=== PATIENT | male | born 1975 | race Caucasian/White ===

== ENCOUNTER 2016-08-16 14:30 | Inpatient (IN) | payer BC ==
[~2016-08-16] VITALS: Ht 188 cm; Wt 54.0 kg
[~2016-08-16 14:30] MED LIST: CIPR-172 PO; CLON0.5T4 PO; CLON1TAB4 PO; CYAN100067 PO; FLOR.1 PO; HYDR2TAB34 PO; METO25TA3 PO; NYST15CR30 TP; TEMA15CA PO; TIZA4TAB11 PO; [UNRECOGNIZED DRUG - CODE] SL
[2016-08-16 14:38] VITALS: BP_SYST 108
--- NOTE | 2016-08-16 14:59 | NUR ---
Placed in room 03 . Placed on freight checker, blood pressure machine and pulse oximeter. To gown for exam. Side rails up. Report given to Dharmesh
--- NOTE | 2016-08-16 15:02 | NUR ---
Pt states having continuous generalized abd pain for last 2 weeks. +nausea, -vomiting, -diarrhea. Pt states having "loss of appetite" for last week. Pt states pain on palpation in all 4 quadrants, pain scale 6/10. Pt states that his stool is "dark colored and formed". Pt arrived to ER with In and Out catheter from home, approximately 200 mL emptied from bag. Pt denies any other complaints.
--- NOTE | 2016-08-16 15:03 | NUR ---
ER Dr. Gutierrez at bedside examining patient.
[2016-08-16 15:23] LABS: BASOPHILS % (AUTO) 0.7 % (0.0-2.0); HEMATOCRIT 43.9 % (36-54); HEMOGLOBIN 14.3 g/dL (14.0-18.0); LYMPHOCYTES # (AUTO) 1.9 K/uL (1.0-5.5); LYMPHOCYTES % (AUTO) 43.9 % (20.5-51.5); MEAN CORPUSCULAR HEMOGLOBIN 30 pg (27-31); MEAN CORPUSCULAR HGB CONC 33 % (32-36); MEAN CORPUSCULAR VOLUME 91 fL (79.0-98.0); MONOCYTES # (AUTO) 0.5 K/uL (0.0-1.0); MONOCYTES % (AUTO) 11.7 % (1.7-9.3); NEUTROPHILS # (AUTO) 1.8 K/uL (1.8-7.7); NEUTROPHILS % (AUTO) 42.7 % (40.0-70.0); PLATELET COUNT (AUTO) 221 K/uL (130-430); RED BLOOD CELL COUNT(AUTO) 4.82 MIL/uL (4.2-6.2); RED CELL DISTRIBUTION WIDTH 11.8 % (9.0-15.0); WHITE BLOOD COUNT (AUTO) 4.2 K/uL (4.8-10.8)
[2016-08-16 15:36] LABS: CALCIUM 9.1 mg/dL (8.4-11.0); CREATININE 0.39 mg/dL (0.55-1.30); POTASSIUM 3.8 mmol/L (3.5-5.1)
[2016-08-16 15:39] LABS: BILIRUBIN,URINE NEGATIVE (NEGATIVE); CLARITY/URINE CLEAR (CLEAR); COLOR,URINE YELLOW (YELLOW); GLUCOSE,URINE NEGATIVE (NEGATIVE); KETONES,URINE NEGATIVE (NEGATIVE); LEUKOCYTE ESTERASE ,URINE NEGATIVE (NEGATIVE); NITRITE, URINE NEGATIVE (NEGATIVE); PH,URINE 5.5 (5.0-8.0); PROTEIN URINE NEGATIVE (NEGATIVE); UROBILINOGEN,URINE 0.2 (0.2-1.0)
[2016-08-16 15:39] LABS: INR 1.1 (0.80-1.20); PROTHROMBIN TIME 11.6 SECS (9.5-12.5)
[2016-08-16 15:40] LABS: BLOOD, URINE TRACE (NEGATIVE)
[2016-08-16 15:40] LABS: ALBUMIN 4.1 g/dL (3.4-4.8); TOTAL BILIRUBIN 0.6 mg/dL (0.0-1.0); TOTAL PROTEIN, SERUM 7.5 g/dL (6.4-8.3)
[2016-08-16 15:57] LABS: BACTERIA,URINE FEW /HPF (None Seen); RBC,URINE 0-3 /HPF (0-3)
[2016-08-16 15:58] LABS: MUCUS,URINE None Seen /LPF (None Seen)
[2016-08-16] MEDS ORDERED: MAGNESIUM CITRATE 300 ML ORAL SOLUTION PO ONE (16:15)
[2016-08-16] MEDS ORDERED: CIPROFLOXACIN HCL 500 MG TABLET PO ONE (16:15)
--- NOTE | 2016-08-16 16:32 | NUR ---
Pt stable, no signs of distress noted.
[2016-08-16] MEDS ORDERED: KCL 20 mEq in D5/0.45NS 1000mL 1,000 ML IV SCH (17:00)
--- NOTE | 2016-08-16 17:20 | NUR ---
Patient will be admitted to care of Dr. Spears. Admitted to med surg unit. Will go to room 104A. Belongings list completed. Summary report printed. Report given to MEENAKSHI Ballard.
--- NOTE | 2016-08-16 17:23 | NUR ---
ADMISSION NOTE Received patient from ER via winsomerdeborah, received report from ED RN. Patient admitted with diagnosis of URINARY TRACT INFECTION. Patient oriented to hospital routine, call light, toileting and safety-patient verbalized understanding.
[2016-08-16 17:45] VITALS: BP_SYST 91
--- NOTE | 2016-08-16 18:02 | NUR ---
Initial Note Received pt in bed, no s/s of distress or sob noted, pt has no c/o pain at this time, pt in stable condition, pt aaox4, verbal, pt quadriplegic. Pt made comfortable, currently eating dinner. Bed at lowest position, call light within reach, will endorse care of pt to incoming nurse. Fall precautions in place.
--- NOTE | 2016-08-16 18:10 | NUR ---
MD CALL Spoke with Dr Butt in regards to orders for straight catheter, air mattress, IV site, dietary and psychosocial rehabilitation counselor consult per md to only telephone order for IV catheter and that he will come and see pt right now and put orders in computer. Charge nurse aware.
[2016-08-16] MEDS ORDERED: CYANOCOBALAMIN 1000 mCg TABLET PO SCH (19:15)
[2016-08-16] MEDS ORDERED: clonazePAM 0.5 MG TABLET PO PRN (19:15)
--- NOTE | 2016-08-16 19:27 | NUR ---
CONSULTATION PAGED REASON FOR CONSULTATION:ACUTE ABDOMINAL PAIN WAS CONSULT CALLED?Y PERSON WHO WAS NOTIFIED:DAMIR CONSULTING PHYSICIAN:GARETT JAIMES FERRY BOAT CAPTAIN SPECIALTY:SURGEON FERRY BOAT CAPTAIN PHONE NUMBER:[phone]
[2016-08-16] MEDS ORDERED: MINERAL OIL 133 ML ENEMA RC ONE (19:30)
[2016-08-16 20:00] VITALS: BP_SYST 126
--- NOTE | 2016-08-16 20:00 | NUR ---
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
[2016-08-16] MEDS: CEFEPIME 1 GM in D5W 50 ML IV SCH (21:00)
[2016-08-16] MEDS ORDERED: NYSTATIN/TRIAMCIN 15 GM TOPICAL CREAM TP SCH (21:00)
[2016-08-16] MEDS: HYDROmorphone 2 MG TAB PO PRN (21:02)
[2016-08-16 21:15] VITALS: BP_SYST 128
[2016-08-16] MEDS ORDERED: CEFEPIME 1 GM/VIAL (MAXIPIME) ONE (22:36)
[2016-08-16] MEDS: ENOXAPARIN SODIUM 30 MG/0.3 ML SYRINGE SUBCUT SCH (22:47)
[2016-08-16] MEDS: FLUDROCORTISONE ACETATE 0.1 MG TABLET( FLORINEF) PO SCH (22:48)
[2016-08-16] MEDS: tiZANidine HCL 4 MG TABLET PO SCH (22:48)
[2016-08-16] MEDS: TEMAZEPAM 15 MG CAPSULE PO SCH (22:48)
[2016-08-16] MEDS: clonazePAM 0.5 MG TABLET PO SCH (22:49)
--- NOTE | 2016-08-16 23:00 | NUR ---
Pt resting at this time;no signs/symptoms of pain observed
[2016-08-16] MEDS: HYOSCYAMINE SULFATE 0.125 MG TABLET SL SCH (23:27)
[2016-08-17 00:03] VITALS: BP_SYST 119
--- NOTE | 2016-08-17 01:10 | NUR ---
Report given & care surrendered to MEENAKSHI Ryan
--- NOTE | 2016-08-17 01:15 | NUR ---
Endorsement of Patient Received patient resting in bed, awake. Patient denies any acute distress at this time. Breathing is even and unlabored. IV site patent/clean/dry. Per patient, patient is paralyzed from armpits down. Medicated patient for pain. Educated patient on use of call light for assistance, patient verbalized understanding. Call light in hand, will continue to monitor.
[2016-08-17] MEDS: HYDROmorphone 2 MG TAB PO PRN ×4 (01:26→18:55)
--- NOTE | 2016-08-17 02:00 | NUR ---
Rounds Patient resting in bed, awake. Patient denies any acute distress or pain at this time. Breathing is even and unlabored. Repositioned for comfort. Needs address. IV site patent/clean/dry. Will continue to monitor.
--- NOTE | 2016-08-17 04:00 | NUR ---
Rounds Patient resting in bed with eyes closed. No acute distress noted, breathing is even any unlabored. IV site patent/clean/dry. Will continue to monitor.
[2016-08-17 04:23] VITALS: BP_SYST 92
--- NOTE | 2016-08-17 06:49 | NUR ---
Closing Notes Patient resting in bed with eyes closed, easily aroused. Patient denies any acute distress or pain at this time. Breathing is even and unlabored on room air. IV site patent/clean/dry, no S/S infection/infiltration noted. Incontinence care provided. Needs addressed throughout shift. Call light in hand, fall precautions in place. Will continue to monitor for changes and safety, and endorse all patient care/needs to oncoming nurse.
[2016-08-17 07:30] VITALS: BP_SYST 102
--- NOTE | 2016-08-17 08:00 | NUR ---
Opening notes; Received patient in bed, c/o pain generalized, mostly at back 10, will medicate. pt aaox3, no sob, no distress. on air mattress, bed in low position, vitals wnl. afebrile. call light in reach. bed alarm on, will cont to monitor.
--- NOTE | 2016-08-17 09:22 | NUR ---
Nutrition Update Moreno Scale 13 noted. Pt admitted for UTI. Diet: regular, no gluten BMI: 15.4 kg/m2 RD to follow per nutrition care standards.
[2016-08-17] MEDS: METOPROLOL SUCCINATE 25 MG TAB.SR.24H (TOPROL XL) PO SCH (09:31)
[2016-08-17] MEDS: FLUDROCORTISONE ACETATE 0.1 MG TABLET( FLORINEF) PO SCH ×2 (09:32→21:15)
[2016-08-17] MEDS: tiZANidine HCL 4 MG TABLET PO SCH ×2 (09:32→21:14)
[2016-08-17] MEDS: clonazePAM 0.5 MG TABLET PO SCH ×3 (09:32→21:15)
--- NOTE | 2016-08-17 10:00 | NUR ---
Rounding notes, patient in bed , denies pain, no sob, no distress, family at bedside. all am meds offered and taken. safety precaution in place. will continue to monitor.
[2016-08-17 11:36] VITALS: BP_SYST 96
[2016-08-17] MEDS ORDERED: NYSTATIN/TRIAMCIN 15 GM TOPICAL CREAM TP ONE (11:45)
--- NOTE | 2016-08-17 12:00 | NUR ---
Rounding notes ; fs bs = 133 Pt in bed, awake, family at bedside, no s/sx pain, no sob, no distress. call light in reach, bed in low position. safety precautiion in place. estate attorney , Choco , changed wound vac dressing earlier. Addendum: 08/17/16 at 1226 by Higinio Jimenez RN WRONG ENTRY NOTES PLEASE DISREGARD THIS PATIENT NOTES, THIS BELONGS TO ANOTHER PATIENT
--- NOTE | 2016-08-17 12:19 | NUR ---
Rounding notes, patient in bed, family at bedside. eating lunch, no sob, no distress. provided drinking water and fork. call light in reach, bed in low position. safety precaution in place. will cont to monitor.
[2016-08-17] MEDS: HYOSCYAMINE SULFATE 0.125 MG TABLET SL SCH ×2 (13:17→21:15)
[2016-08-17] MEDS: NYSTATIN/TRIAMCIN 15 GM TOPICAL CREAM TP SCH (13:18)
[2016-08-17] MEDS: CEFEPIME 1 GM in D5W 50 ML IV SCH ×2 (13:22→21:14)
[2016-08-17] MEDS: KCL 20 mEq in D5/0.45NS 1000mL 1,000 ML IV SCH (13:32)
[2016-08-17 15:33] VITALS: BP_SYST 123
--- NOTE | 2016-08-17 15:33 | NUR ---
rounding notes, pt in bed, sleeping, family at bedside. pt awaken and given pm med. no c/o pain. no sob.
--- NOTE | 2016-08-17 16:27 | NUR ---
rounding notes, follow up consult with dr carvalho. pt in bed, no sob, no distress, pt resting comfortably in bed. call light in reach, bed in low position. will cont to monitor. per rn discharge zeny, she is calling dr haque to make aware that dr kaia carvalho will not be able to see pt until tomorrow morning.
--- NOTE | 2016-08-17 18:00 | NUR ---
rounding notes, patient in bed, denies pain , no sob, no distress. call light in reach. bed in low position. will cont to monitor.
--- NOTE | 2016-08-17 18:00 | NUR ---
DR carvalho will seeing patient in am. Dr sainz is aware.
[2016-08-17 19:10] VITALS: BP_SYST 101
--- NOTE | 2016-08-17 19:10 | NUR ---
Initial Round Received patient in bed awake with friend at bedside. Patient is awake, alert, oriented x3. V/S are WNL. No s/s of any pain or distress noted. IV noted to L hand g 22, no infiltrate and with good blood return. Pt has a in and out suprapubic cath and can perform by pt independently, supplies at bedside. BUE are strong and BLE are paralzyed. Discussed plan of care with pt and verbalized understanding. Bed in low position with call light within reach, will cont to monitor.
--- NOTE | 2016-08-17 19:30 | NUR ---
CLOSING NOTES, PT ENDORSE TO NIGHT RN JOHN. PT REMAIN AAO, PAIN MEDS GIVEN REQUESTED. KEPT SAFE. NO UNTOWARD INCIDENT THIS SHIFT.
--- NOTE | 2016-08-17 21:10 | NUR ---
Rounds Patient is awake with friend at bedside. No s/s of any distress noted. Call light within reach, will cont to monitor.
[2016-08-17] MEDS: TEMAZEPAM 15 MG CAPSULE PO SCH (21:15)
[2016-08-17] MEDS: ENOXAPARIN SODIUM 30 MG/0.3 ML SYRINGE SUBCUT SCH (21:16)
--- NOTE | 2016-08-17 23:10 | NUR ---
Assisted with urostomy bag Assisted pt with the use of urostomy . Left bed in low position with call light within reach, will cont to monitor.
[2016-08-18] VITALS (7 sets, daily range): BP systolic 96–129
[2016-08-18] MEDS: KCL 20 mEq in D5/0.45NS 1000mL 1,000 ML IV SCH ×2 (03:31→16:05)
--- NOTE | 2016-08-18 03:46 | NUR ---
Reinsert new IV Reinsert new IV site to MAR Torres. Tolerated well, no c/o pain. Will cont to monitor.
[2016-08-18] MEDS: HYDROmorphone 2 MG TAB PO PRN ×4 (06:18→21:17)
--- NOTE | 2016-08-18 06:40 | NUR ---
Final Rounds Patient is resting at this time. No s/s of pain or any distress noted. V/S are wnl. All needs met and anticipated by noc nurses. Bed in low position with side rails up x2. Call light within reach, will endorse.
--- NOTE | 2016-08-18 08:00 | NUR ---
RN OPENING patient lying on bed alert oriented x4 , patient vital signs are stable, patient was assessed, patient will be given their med at 0900 will follow up
[2016-08-18] MEDS: CEFEPIME 1 GM in D5W 50 ML IV SCH ×2 (09:03→21:10)
[2016-08-18] MEDS: METOPROLOL SUCCINATE 25 MG TAB.SR.24H (TOPROL XL) PO SCH (09:03)
[2016-08-18] MEDS: tiZANidine HCL 4 MG TABLET PO SCH ×2 (09:04→21:10)
[2016-08-18] MEDS: clonazePAM 0.5 MG TABLET PO SCH ×3 (09:04→21:10)
[2016-08-18] MEDS: FLUDROCORTISONE ACETATE 0.1 MG TABLET( FLORINEF) PO SCH ×2 (09:05→21:10)
[2016-08-18] MEDS: NYSTATIN/TRIAMCIN 15 GM TOPICAL CREAM TP SCH ×2 (09:07→21:11)
--- NOTE | 2016-08-18 10:00 | NUR ---
RN Rounds patient lying on bed, talked to the surgeon about his next operation, was educated about the infection prevention of the urinary tract. pharmacy was called regarding Levsin tab is missing.. will follow up
--- NOTE | 2016-08-18 12:00 | NUR ---
RN Rounds patient lying on bed skin care therapist by the bed side. no complaints. pharmacy was called again regarding the medicine, they say they will send it will follow up
[2016-08-18] MEDS: HYOSCYAMINE SULFATE 0.125 MG TABLET SL SCH ×2 (12:53→21:00)
--- NOTE | 2016-08-18 19:30 | NUR ---
CHANGE OF SHIFT: pt. awake, alert, been trying to catheterize himself via hypogastric region on rt. side of abdomen with small stoma opening, offered help but he wants to do it himself his own way with some difficulty because pt. is quadriplegic but upper extremities able to move. IV infusing via left forearm IV site. pt. on special bed. call light within reach.
[2016-08-18] MEDS: TEMAZEPAM 15 MG CAPSULE PO SCH (21:10)
[2016-08-18] MEDS: ENOXAPARIN SODIUM 30 MG/0.3 ML SYRINGE SUBCUT SCH (21:12)
--- NOTE | 2016-08-18 21:30 | NUR ---
NOTES; due medications given and tolerated well, given pain med as well for generalized pain. both lower extremities elevated with pillows. needs attended.
--- NOTE | 2016-08-18 22:00 | NUR ---
NOTES: complete hs care done. repositioned pt. the way he wants. esequiel care done, noted redness on scrotal area and some redness on coccyx area but no open sore and skin intact.noted loss of body fats, back care done.
--- NOTE | 2016-08-19 | NUR ---
NOTES: pt. remains awake, noted slight relief from his pain. needs attended.
--- NOTE | 2016-08-19 02:00 | NUR ---
NOTES: still trying to get comfortable, already sweating. able to drain @ 700 cc of urine earlier. will medicate for c/o generalized pain.
[2016-08-19] MEDS: HYDROmorphone 2 MG TAB PO PRN ×4 (02:16→20:38)
--- NOTE | 2016-08-19 04:00 | NUR ---
ROUNDS: pt. able to sleep this time. kept warm with his comforter.call light within reach and also his cell phone on his bedside.
[2016-08-19 04:45] VITALS: BP_SYST 137
--- NOTE | 2016-08-19 06:00 | NUR ---
NOTES: pt. checked, resting and still sleeping. needs attended. IVF paten, heating pad on his back continuous. needs further care and observation. call light within reach. catheters at bedside table for easy access fo pt. to self cath himself.
--- NOTE | 2016-08-19 07:40 | NUR ---
endorsed pt. to incoming shift with nurse Smith. caregiver at bedside. for further assistance.
[2016-08-19 08:00] VITALS: BP_SYST 100
--- NOTE | 2016-08-19 08:00 | NUR ---
OPENING NOTE PT IS BEING TREATED FOR A UTI AND IS CURRENTLY AFEBRILE WITH NO S/S OF INFECTION. PT STATED HE IS IN PAIN 09/26 SO i ADMINISTERED THE PRN ANALGESIC PRESCRIBED. PT IS QUADRIPLEGIC AND HIS ARMS OR CONTRACTED, YET HE IS ABLE TO FEED HIMSELF AND DRINKS WATER FROM SPECIALIZED BOTTLES WHICH ARE KEPT AT BEDSIDE. PT HAS A CAREGIVE, JODY, AT BEDSIDE, AND SHE ASSISTED ME IN REPOSITIONING HIM FOR COMFORT AND CHANGING HIS SHIRT
[2016-08-19] MEDS: KCL 20 mEq in D5/0.45NS 1000mL 1,000 ML IV SCH ×2 (08:26→19:10)
--- NOTE | 2016-08-19 10:00 | NUR ---
PENNY PT IS SITTING UP IN BED TALKING TO HIS CAREGIVER WHO IS AT BEDSIDE
[2016-08-19] MEDS: tiZANidine HCL 4 MG TABLET PO SCH ×2 (10:18→22:13)
[2016-08-19] MEDS: CEFEPIME 1 GM in D5W 50 ML IV SCH ×2 (10:18→22:12)
[2016-08-19] MEDS: NYSTATIN/TRIAMCIN 15 GM TOPICAL CREAM TP SCH ×2 (10:18→22:16)
[2016-08-19] MEDS: FLUDROCORTISONE ACETATE 0.1 MG TABLET( FLORINEF) PO SCH ×2 (10:19→22:16)
[2016-08-19] MEDS: clonazePAM 0.5 MG TABLET PO SCH ×3 (10:19→22:13)
[2016-08-19] MEDS: METOPROLOL SUCCINATE 25 MG TAB.SR.24H (TOPROL XL) PO SCH (10:20)
[2016-08-19 12:00] VITALS: BP_SYST 96
--- NOTE | 2016-08-19 13:00 | NUR ---
ROUNDS ASSISTED PATIENT WITH CATHETER AND EDUCATED HIM ON INFECTION CONTROL. EXPLAINED THAT DR HAS ORDERED HIM TO DRINK 1 GALLON OF GOLYTELY AND THEN AN ENEMA TO ENCOURAGE A BM
[2016-08-19] MEDS: HYOSCYAMINE SULFATE 0.125 MG TABLET SL SCH ×2 (13:22→22:16)
[2016-08-19] MEDS ORDERED: GOLYTELY / COLYTE SOLUTION 4 LITERS PO ONE (13:30)
[2016-08-19] MEDS ORDERED: NA PHOS,M-B/NA PHOS,DI-BA 118 ML (FLEET ENEMA) RC ONE (15:00)
--- NOTE | 2016-08-19 15:00 | NUR ---
JOSÉ MIGUEL PT IS ONLY ABLE TO TOLERATE 16 OUNCES OF GOLYTELY AT A TIME, SO I WILL CONTINUE TO CHECK IN WITH HIM AND ENCOURAGE HIM TO DRINK MORE
[2016-08-19 16:27] VITALS: BP_SYST 137
--- NOTE | 2016-08-19 18:23 | NUR ---
Wound Care Consult: Wound consult ordered by Dr. Spears. Thank you, Dr. Spears, for the consult. Patient received in a Duong bed with an Isoflex NORIS mattress with low air loss therapy is initiated, awake, alert, and oriented. Skin is Fair (-). Past medical history: Quadriplegia secondary to Spinal Cord Injury, Bladder and Bowel Dysfunction, Hyperreflexia Syndrome, recurrent Urinary Tract Infection, chronic Constipation, and Suprapubic tube placement. Labs: WBC 4.2, RBC 4.82, Hgb 14.3, Hct 43.9, BUN 11, Creat 0.39, GFR 258. Intrinsic Factors that delay wound healing: Low Hemoglobin and RBC lab values. Extrinsic Factors that delay wound healing: Decreased mobility. Blood Culture x 2 results pending. Urine culture negative. 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 Wound has 90% black discoloration under the skin, and 10% red tissue at the superior aspect. Cassandra-wound intact. No odor, scant sanguineous drainage. Measures 2.4 cm x 0.5 cm. Recommend: Cleanse wound with normal saline. Put moisture barrier cream on periwound and black portion of wound. Put hydrogel onto open area of wound. Cover with foam dressing. Perform wound care daily, and as needed for dressing soiling or dislodgement. Elevate, offload, and float bilateral heels. Do not allow heels or Malleoli to touch bed or other surfaces. Place a towel roll next to left thigh to prevent external rotation of left lower extremity. 2) Sacral/Buttocks Area: Appears to be erythema and scar tissue, present on admission. No odor, no drainage. 3) Scrotal Area: Appears to be erythema from IAD, present on admission. No odor, no drainage. Recommend: Cleanse sites with normal Saline. Pat dry. Put moisture barrier cream onto sites. Perform site care qid, and as needed for soiling. Also recommend: Encourage and assist patient as needed with repositioning side to side only every two hours with pillow support, and off-load heels and pressure areas with pillows for pressure re-distribution. Perform skin care and monitor skin integrity q shift. Use moisture barrier cream on cassandra, buttocks, Sacral, Scrotal, and moisture susceptible areas qid and as needed for soiling. Maintain patient on a low air-loss mattress.
--- NOTE | 2016-08-19 19:00 | NUR ---
CLOSING NOTE PT IS SITTING UP IN BED AND APPEARS COMFORTABLE. HIS IV BECAME OCCLUDED AT 1845 AND ANOTHER NURSE ATTEMPTED TO INSERT A NEW ONE WITHOUT SUCCESS. I WILL ENDORSE THE IV INSERTION TO THE PM NURSE
--- NOTE | 2016-08-19 19:20 | NUR ---
OPENING NOTES RECEIVED REPORT AT BEDSIDE. PATIENT STABLE. NO ACUTE S/S OF DISTRESS NOTED. FALL PRECAUTIONS IN PLACE. WILL CONTINUE TO MONITOR.
[2016-08-19 20:20] VITALS: BP_SYST 97
--- NOTE | 2016-08-19 22:00 | NUR ---
URINE OUTPUT PATIENT INSERTED CATHETER HIMSELF, 200ML URINE OUTPUT, YELLOW WITH MUCUS LIKE OUTPUT.
--- NOTE | 2016-08-19 22:11 | NUR ---
IV INSERTION NEW IV INSERTED. RIGHT FOREARM. PATIENT TOLERATED WELL. 1 ATTEMPT. 22 GUAGE, GOOD BLOOD RETURN.
[2016-08-19] MEDS: ENOXAPARIN SODIUM 30 MG/0.3 ML SYRINGE SUBCUT SCH (22:13)
[2016-08-19] MEDS: TEMAZEPAM 15 MG CAPSULE PO SCH (22:13)
--- NOTE | 2016-08-19 23:45 | NUR ---
RAMBO ASSISTED PT. TO DRINK GO LIGHTLY. TOLERATED WELL.
[2016-08-20] VITALS (7 sets, daily range): BP systolic 100–136
[2016-08-20] MEDS: HYDROmorphone 2 MG TAB PO PRN ×6 (01:51→23:51)
--- NOTE | 2016-08-20 02:24 | NUR ---
BM PATIENT HAD ONE BM. PT. STATED A RELIEF IN ABDOMINAL PRESSURE FOLLOWING.
--- NOTE | 2016-08-20 04:20 | NUR ---
RN ROUNDS PATIENT SLEEPING COMFORTABLY. VISIBLE RISE AND FALL OF CHEST NOTED. IV PATENT AND INFUSING. NO S/S/ OF ACUTE DISTRESS NOTED. WILL CONTINUE TO MONITOR. CALL LIGHT WITHIN REACH.
--- NOTE | 2016-08-20 06:20 | NUR ---
BM PATIENT HAD ANOTHER 2 BOWEL MOVEMENTS, WATERY, BROWN. PATIENT CLEANED AND Z-GUARD APPLIED.
[2016-08-20] MEDS: KCL 20 mEq in D5/0.45NS 1000mL 1,000 ML IV SCH ×2 (06:40→19:47)
--- NOTE | 2016-08-20 07:18 | NUR ---
CLOSING NOTES PATIENT IS SITTING UP IN BED, IN GOOD SPIRITS. MEDICATED FOR PAIN, NOW PAIN IS AT A 5/10. PT. STATES THE BM'S HE HAS HAD THE LAST FEW HOURS HAS ALLEVIATED THE PAIN IN HIS PAIN TO SOME DEGREE. IV IS PATENT AND INFUSING, WITH NO SIGNS OF INFILTRATION. RESPIRATIONS ARE EVEN AND UNLABORED. NO ACUTE S/S OF DISTRESS NOTED. WILL ENDORSE CARE TO DAYSHIFT NURSE.
[2016-08-20] MEDS: CEFEPIME 1 GM in D5W 50 ML IV SCH ×2 (09:31→20:59)
[2016-08-20] MEDS: NYSTATIN/TRIAMCIN 15 GM TOPICAL CREAM TP SCH ×2 (09:32→21:00)
[2016-08-20] MEDS: tiZANidine HCL 4 MG TABLET PO SCH ×2 (09:32→21:00)
[2016-08-20] MEDS: clonazePAM 0.5 MG TABLET PO SCH ×3 (09:33→21:00)
[2016-08-20] MEDS: HYOSCYAMINE SULFATE 0.125 MG TABLET SL SCH ×2 (09:33→21:00)
[2016-08-20] MEDS: FLUDROCORTISONE ACETATE 0.1 MG TABLET( FLORINEF) PO SCH ×2 (09:33→21:00)
[2016-08-20] MEDS: METOPROLOL SUCCINATE 25 MG TAB.SR.24H (TOPROL XL) PO SCH (09:35)
--- NOTE | 2016-08-20 16:54 | NUR ---
CONSULT WAS CALLED RE: TREMORS SPOKE WITH TIARA FROM DR AGUILA EXCHANGE DR GODINEZ IS TRANSMISSION SYSTEMS OPERATOR FOR DR AGUILA .
--- NOTE | 2016-08-20 20:00 | NUR ---
Initial Notes Received patient resting in bed, awake, alert, family at bedside. Patient denies any acute distress, complains of pain, medicated per MD order. Vital signs stable. Breathing is even and unlabored on room air. IV site patent/clean/dry. Patient is paralyzed from armpits down. Wound noted to left ankle, dressing clean/dry/intact. Stoma noted for patient to self straight cath, supplies at bedside. Educated patient and family on use of call light for assistance and fall precautions, all verbalized understanding. Call light in hand, will continue to monitor.
[2016-08-20] MEDS: ENOXAPARIN SODIUM 30 MG/0.3 ML SYRINGE SUBCUT SCH (21:00)
[2016-08-20] MEDS: TEMAZEPAM 15 MG CAPSULE PO SCH (21:00)
--- NOTE | 2016-08-20 22:00 | NUR ---
Rounds Patient resting in bed with eyes closed, easily aroused upon nurse entering room. Patient denies any acute distress or pain at this time. Breathing is even and unlabored. IV site patent/clean/dry. Offered to assist patient to straight cath self, patient refused at this time. Needs addressed. Call light in hand, fall precautions in place. Will continue to monitor.
--- NOTE | 2016-08-21 | NUR ---
Rounds Patient resting in bed, awake. Patient denies any acute distress. Medicated patient for pain per MD order. Assisted patient with straight cath of urostomy, 300ml urine output. IV site patent/clean/dry. Needs addressed. Call light in hand, will continue to monitor.
--- NOTE | 2016-08-21 02:00 | NUR ---
Rounds Patient resting in bed with eyes closed. No acute distress noted, breathing is even and unlabored. IV site patent/clean/dry. Call light in hand, will continue to monitor.
[2016-08-21] MEDS: HYDROmorphone 2 MG TAB PO PRN ×4 (03:59→18:23)
[2016-08-21 04:14] VITALS: BP_SYST 120
--- NOTE | 2016-08-21 04:30 | NUR ---
Rounds Patient resting in bed, awake. Patient denies any acute distress or pain at this time. Breathing is even and unlabored. IV site patent/clean/dry. Assisted patient with straight cath. Incontinence care provided. Needs addressed, call light in hand, will continue to monitor.
--- NOTE | 2016-08-21 06:38 | NUR ---
Closing Notes Patient resting in bed, awake. Patient denies any acute distress or pain at this time. Breathing is even and unlabored. IV site patent/clean/dry, no S/S infection/infiltration noted. Needs addressed throughout shift. Call light in hand, fall precautions in place. Will continue to monitor for changes and safety, and endorse all patient care/needs to oncoming nurse.
[2016-08-21 08:00] VITALS: BP_SYST 101
--- NOTE | 2016-08-21 08:00 | NUR ---
OPENING NOTE PT IS BEING TREATED FOR A UTI AND IS CURRENTLY AFEBRILE WITH NO S/S OF INFECTION. VS STABLE ASIDE FROM HIS CHRONIC GENERALIZED PAIN, WHICH HE STATES IS CURRENTLY 6/10. PT IS QUADRIPLEGIC, UPPER EXTREMITIES CONTRACTED BUT HE IS ABLE TO FEED HIMSELF AND DRINKS WATER FROM SPECIALIZED BOTTLES WHICH ARE KEPT AT BEDSIDE.
[2016-08-21] MEDS: CEFEPIME 1 GM in D5W 50 ML IV SCH ×2 (08:16→20:35)
[2016-08-21] MEDS: clonazePAM 0.5 MG TABLET PO SCH ×3 (08:17→20:36)
[2016-08-21] MEDS: METOPROLOL SUCCINATE 25 MG TAB.SR.24H (TOPROL XL) PO SCH (08:19)
[2016-08-21] MEDS: tiZANidine HCL 4 MG TABLET PO SCH ×2 (08:21→20:35)
[2016-08-21] MEDS: HYOSCYAMINE SULFATE 0.125 MG TABLET SL SCH ×2 (08:21→20:35)
[2016-08-21] MEDS: KCL 20 mEq in D5/0.45NS 1000mL 1,000 ML IV SCH ×2 (08:21→20:38)
[2016-08-21] MEDS: NYSTATIN/TRIAMCIN 15 GM TOPICAL CREAM TP SCH ×2 (08:22→20:37)
[2016-08-21] MEDS: FLUDROCORTISONE ACETATE 0.1 MG TABLET( FLORINEF) PO SCH ×2 (08:25→20:35)
--- NOTE | 2016-08-21 11:00 | NUR ---
ROUNDS PT IS RESTING IN BED AND STATES HE IS COMFORTABLE. I REPOSITIONED HIM FOR COMFORT
--- NOTE | 2016-08-21 11:49 | NUR ---
CM DC PLANNING: HOME, PENDING NEURO CONSULT SPOKE WITH RN/NASEEM TO DETERMINE IF Pt HAD GOOD RESPONSE FROM GOLITELY & FLEETS ENEMA ON 08/19/16; PER NASEEM, Pt DID HAVE GOOD RESULTS; AND IS AWARE THAT DR. SHEEHAN HAS OK'd FOR DC IF HE HAD GOOD RESULTS. HOWEVER, HE IS PENDING NEURO CONSULT FOR TREMORS PER DR. James AGUILA THAT WAS REQUESTED YESTERDAY, 08/20/16. REQUESTED US/[facility] PAR[facility]OF[facility]AL [facility], TO RE-REQUEST NEURO CONSULT WITH DR. James AGUILA.
[2016-08-21 12:17] VITALS: BP_SYST 110
--- NOTE | 2016-08-21 13:35 | NUR ---
ROUNDS PT IS SITTING UP IN BED, TALKING ON THE PHONE TO A FAMILY MEMBER. HE SAID HE IS IN PAIN 09/26, SO I PROVIDED HIS PRN ANALGESIC. PT IS CONCERNED ABOUT BEING DISCHARGED HOME WITHOUT HOME-HEALTH OR REHAB, AND IS ALSO CONCERNED ABOUT REMAINING IN THE HOSPITAL LONGER THAN HIS INSURANCE MAY COVER. I LEFT A MESSAGE FOR HIS PROJECT HIRE TO DISCUSS HIS CONCERNS WITH HIM. AUTUMN CURRENTLY AT BEDSIDE, FEEDING PT
--- NOTE | 2016-08-21 16:06 | NUR ---
ROUNDS PT IS SITTING UP IN BED AND STATES HE IS COMFORTABLE ASIDE FROM HIS CHRONIC PAIN, WHICH HE SAID IS TOLERABLE.
[2016-08-21 16:44] VITALS: BP_SYST 99
--- NOTE | 2016-08-21 18:30 | NUR ---
CLOSING NOTE PT IS RESTING IN BED AND STATES HE IS IN PAIN 09/26, SO I ADMINISTERED THE PRN ANALGESIC SCHEDULED. PT SAID HE IS COMFORTABLE ASIDE FORM THE PAIN, BUT IS STILL ANXIOUS REGARDING HIS DISCHARGE PLANNING AND HOME CARE. VS STABLE, PT IS CLEAN AND DRY.
[2016-08-21 19:55] VITALS: BP_SYST 108
--- NOTE | 2016-08-21 20:00 | NUR ---
Rounds Received patient laying in bed, awake, alert, oriented. Patient is paralyzed from armpits down, with limited use of upper extremities. Patient denies any acute distress or pain at this time. Vital signs stable. Breathing is even and unlabored on room air. IV site patent/clean/dry. Urostomy stoma noted right pelvis, patient is able to straight cath using personal supplies. Left ankle wound noted, dressing clean/dry/intact. Patient repositioned for comfort. Needs addressed. Educated patient on use of call light for assistance and fall precautions, patient verbalized understanding. Call light in hand, will continue to monitor.
[2016-08-21] MEDS: TEMAZEPAM 15 MG CAPSULE PO SCH (20:35)
[2016-08-21] MEDS: ENOXAPARIN SODIUM 30 MG/0.3 ML SYRINGE SUBCUT SCH (20:36)
--- NOTE | 2016-08-21 22:06 | NUR ---
Rounds Patient resting in bed, awake. Patient denies any acute distress or pain at this time. Breathing is even and unlabored. IV site patent/clean/dry. Assisted patient with straight cath of urostomy, 500ml output, patient tolerated well. Needs address, call light in hand, will continue to monitor.
--- NOTE | 2016-08-22 | NUR ---
Rounds Patient resting in bed, easily aroused. Patient denies any acute distress or pain. Breathing is even and unlabored. IV site patent/clean/dry. Needs addressed. Repositioned for comfort. Call light in hand, will continue to monitor.
[2016-08-22 00:56] VITALS: BP_SYST 105
--- NOTE | 2016-08-22 02:00 | NUR ---
Rounds Patient resting in bed with eyes closed. No acute distress noted, breathing is even and unlabored. Call light in hand, will continue to monitor.
--- NOTE | 2016-08-22 04:00 | NUR ---
Rounds Patient resting in bed, awake. Patient denies any acute distress. Assisted patient with straight in and out cath of urostomy. Medicated patient for pain per MD order. Dressing change provided to left ankle, patient tolerated well. IV site patent/clean/dry. Call light in hand, will continue to monitor.
[2016-08-22] MEDS: HYDROmorphone 2 MG TAB PO PRN ×2 (04:15→09:41)
[2016-08-22 04:59] VITALS: BP_SYST 117
--- NOTE | 2016-08-22 06:46 | NUR ---
Rounds Patient resting in bed with eyes closed, easily aroused. Patient denies any acute distress or pain at this time. Breathing is even and unlabored on room air. IV site patent/clean/dry, no S/S infection/infiltration noted. Patient repositioned for comfort. Needs addressed throughout shift. Call light in hand, fall precautions in place. Will continue to monitor for changes and safety, and endorse all patient care/needs to oncoming nurse.
[2016-08-22 07:53] LABS: BASOPHILS % (AUTO) 0.2 % (0.0-2.0); HEMATOCRIT 42.4 % (36-54); HEMOGLOBIN 14.1 g/dL (14.0-18.0); LYMPHOCYTES # (AUTO) 1.5 K/uL (1.0-5.5); LYMPHOCYTES % (AUTO) 35.2 % (20.5-51.5); MEAN CORPUSCULAR HEMOGLOBIN 31 pg (27-31); MEAN CORPUSCULAR HGB CONC 33 % (32-36); MEAN CORPUSCULAR VOLUME 92 fL (79.0-98.0); MONOCYTES # (AUTO) 0.4 K/uL (0.0-1.0); MONOCYTES % (AUTO) 8.3 % (1.7-9.3); NEUTROPHILS # (AUTO) 2.4 K/uL (1.8-7.7); NEUTROPHILS % (AUTO) 55.3 % (40.0-70.0); PLATELET COUNT (AUTO) 170 K/uL (130-430); RED CELL DISTRIBUTION WIDTH 12.1 % (9.0-15.0); WHITE BLOOD COUNT (AUTO) 4.4 K/uL (4.8-10.8)
[2016-08-22 08:00] VITALS: BP_SYST 93
[2016-08-22 08:15] LABS: CALCIUM 8.8 mg/dL (8.4-11.0); CREATININE 0.33 mg/dL (0.55-1.30); POTASSIUM 3.6 mmol/L (3.5-5.1)
--- NOTE | 2016-08-22 08:16 | NUR ---
Opening Note Report received from Padilla ARRIETA. Patient is currently awake and resting in bed. Caregiver is at the beside. Call light is within reach. Bed is in low position. IV is on the RFA 22g running D51/2NS+20KCL@75. Suprapubic catheter is in place and is attached to a urostomy bag which is draining clear yellow urine. Will continue to monitor.
[2016-08-22] MEDS: CEFEPIME 1 GM in D5W 50 ML IV SCH (09:40)
[2016-08-22] MEDS: clonazePAM 0.5 MG TABLET PO SCH ×2 (09:40→15:47)
[2016-08-22] MEDS: FLUDROCORTISONE ACETATE 0.1 MG TABLET( FLORINEF) PO SCH (09:41)
[2016-08-22] MEDS: tiZANidine HCL 4 MG TABLET PO SCH (09:41)
[2016-08-22] MEDS: HYOSCYAMINE SULFATE 0.125 MG TABLET SL SCH (09:41)
[2016-08-22] MEDS: METOPROLOL SUCCINATE 25 MG TAB.SR.24H (TOPROL XL) PO SCH (09:48)
[2016-08-22] MEDS: NYSTATIN/TRIAMCIN 15 GM TOPICAL CREAM TP SCH (09:50)
--- NOTE | 2016-08-22 10:20 | NUR ---
Rounds Patient is resting in bed. Call light is within reach.
[2016-08-22] MEDS: KCL 20 mEq in D5/0.45NS 1000mL 1,000 ML IV SCH (11:04)
--- NOTE | 2016-08-22 11:36 | NUR ---
Social Service Note: CROWN IRONER received note from CM to meet with pt to provide him resources. CROWN IRONER met with pt at bedside; pt spoke with CROWN IRONER about some of his needs and concerns about his increasing need for assistance. CROWN IRONER spoke with pt about speaking to Rakesh from [facility]; pt is agreeable/open to speaking to Rakesh about possibly applying for [employer]; CROWN IRONER has contacted Rakesh and asked him to reach out to pt to screen pt for [employer]. CROWN IRONER provided pt with Social Security office locations if pt decides he wants to apply for disability/SSI. CROWN IRONER also gave pt information on In Home Supportive Services. Pt was also given information on [employer] and [employer] if pt needs further assistance. CROWN IRONER will remain available for support and will follow up as needed.
[2016-08-22 11:37] VITALS: BP_SYST 148
--- NOTE | 2016-08-22 12:20 | NUR ---
Rounds Patient is resting in bed. Caregiver is at the bedside.
--- NOTE | 2016-08-22 14:30 | NUR ---
Rounds Patient is resting in bed. No signs of distress noted.
[2016-08-22 15:32] VITALS: BP_SYST 105
[2016-08-22 16:37] VITALS: BP_SYST 148
--- NOTE | 2016-08-22 16:40 | NUR ---
Rounds Patient is resting in bed.
--- NOTE | 2016-08-22 18:00 | NUR ---
Discharge Note All transition of care paperwork were given to the patient. Patient verbalized understanding. IV and ID band were removed. Patient left the unit in stable condition. Left the unit via wheelchair accompanied by family members.
== END 2016-08-22 18:00 | disposition home or self-care (01) | DRG 689 ==
LOC: SED 14:30 → SMU 16:59
PROVIDERS: ADMIT Family Medicine; ATTEND Family Medicine
DX: N39.0 Urinary tract infection, site not specified (principal); R53.2 Functional quadriplegia; K59.09 Other constipation; Z79.899 Other long term (current) drug therapy; Z87.442 Personal history of urinary calculi
CPT/HCPCS: 36415; 71010; 80048; 80053; 81000-TC; 83605; 83690-TC; 85025; 85610-TC; 87040-TC; 87086; 93005; 99285; J0692; J1650; J7060

== ENCOUNTER 2017-05-09 16:27 | Emergency (ER) | payer BC ==
[~2017-05-09] VITALS: Ht 188 cm; Wt 63.5 kg
[~2017-05-09 16:27] MED LIST changes: -CIPR-172 PO
[2017-05-09 16:37] VITALS: BP_SYST 87
[2017-05-09 18:00] LABS: BASOPHILS % (AUTO) 0.3 % (0.0-2.0); HEMOGLOBIN 14.5 g/dL (14.0-18.0); LYMPHOCYTES # (AUTO) 1.6 K/uL (1.0-5.5); MEAN CORPUSCULAR HEMOGLOBIN 30 pg (27-31); MONOCYTES # (AUTO) 0.4 K/uL (0.0-1.0); MONOCYTES % (AUTO) 9.9 % (1.7-9.3); NEUTROPHILS # (AUTO) 2.1 K/uL (1.8-7.7); WHITE BLOOD COUNT (AUTO) 4.1 K/uL (4.8-10.8)
[2017-05-09 18:01] LABS: BILIRUBIN,URINE NEGATIVE (NEGATIVE); BLOOD, URINE NEGATIVE (NEGATIVE); CLARITY/URINE CLEAR (CLEAR); COLOR,URINE YELLOW (YELLOW); GLUCOSE,URINE NEGATIVE (NEGATIVE); KETONES,URINE TRACE (NEGATIVE); LEUKOCYTE ESTERASE ,URINE 2+ (NEGATIVE); NITRITE, URINE POSITIVE (NEGATIVE); PH,URINE 6.5 (5.0-8.0); PROTEIN URINE NEGATIVE (NEGATIVE); UROBILINOGEN,URINE 0.2 (0.2-1.0)
[2017-05-09 18:03] LABS: EOSINOPHILS % (AUTO) 0.4 % (0.0-4.0); HEMATOCRIT 43.1 % (36-54); LYMPHOCYTES % (AUTO) 38.5 % (20.5-51.5); MEAN CORPUSCULAR HGB CONC 34 % (32-36); MEAN CORPUSCULAR VOLUME 90 fL (79.0-98.0); NEUTROPHILS % (AUTO) 50.9 % (40.0-70.0); PLATELET COUNT (AUTO) 215 K/uL (130-430); RED BLOOD CELL COUNT(AUTO) 4.77 MIL/uL (4.2-6.2); RED CELL DISTRIBUTION WIDTH 12.2 % (9.0-15.0)
[2017-05-09 18:10] LABS: BACTERIA,URINE FEW /HPF (None Seen); RBC,URINE 0-3 /HPF (0-3)
[2017-05-09 18:34] LABS: CALCIUM 9.1 mg/dL (8.4-11.0); CREATININE 0.23 mg/dL (0.55-1.30); POTASSIUM 3.8 mmol/L (3.5-5.1)
[2017-05-09 18:38] LABS: ALBUMIN 3.9 g/dL (3.4-4.8); TOTAL BILIRUBIN 0.5 mg/dL (0.0-1.0)
[2017-05-09] MEDS ORDERED: TEMA30CA5 PO (19:05)
[2017-05-09] MEDS ORDERED: fentaNYL CITRATE/PF 100 MCG/2 ML AMP IVP ONE (19:15)
[2017-05-09] MEDS ORDERED: NACL 0.9% 1,000 ML IV ONE ×2 (20:15→22:15)
[2017-05-09] MEDS ORDERED: cefTRIAXone 1 GM IVPB PREMIX 50 ML IV ONE (21:00)
[2017-05-09] MEDS ORDERED: KETOROLAC TROMETHAMINE 30 MG VIAL IVP ONE (22:15)
[2017-05-09] MEDS ORDERED: LACTULOSE 20 GM/30 ML UDC PO ONE (23:00)
[2017-05-09 23:24] VITALS: BP_SYST 109
== END 2017-05-09 23:24 | disposition home or self-care (01) ==
LOC: SED 16:27
DX: N30.00 Acute cystitis without hematuria (principal); K59.00 Constipation, unspecified; G82.54 Quadriplegia, C5-C7 incomplete; Z87.442 Personal history of urinary calculi; Z79.899 Other long term (current) drug therapy
CPT/HCPCS: 36415; 74176; 80053; 81000; 83605; 83690; 85025; 87040; 87086; 96361; 96365; 96375; 99285; J0696; J1885; J3010; J7030

== ENCOUNTER 2017-07-13 22:37 | Inpatient (IN) | payer BC ==
[~2017-07-13] VITALS: Ht 185.4 cm; Wt 64.0 kg
[2017-07-13 22:37] VITALS: BP_SYST 92
[~2017-07-13 22:37] MED LIST changes: +TEMA30CA5 PO
[2017-07-13] MEDS ORDERED: NACL 0.9% 1,000 ML IV ONE (23:25)
[2017-07-13] MEDS ORDERED: cefTRIAXone 1 GM IVPB PREMIX 50 ML IV ONE (23:30)
[2017-07-13 23:59] LABS: BASOPHILS % (AUTO) 0.2 % (0.0-2.0); EOSINOPHILS % (AUTO) 0.3 % (0.0-4.0); HEMATOCRIT 41.8 % (36-54); LYMPHOCYTES # (AUTO) 1.4 K/uL (1.0-5.5); LYMPHOCYTES % (AUTO) 15.6 % (20.5-51.5); MEAN CORPUSCULAR HEMOGLOBIN 30 pg (27-31); MEAN CORPUSCULAR HGB CONC 34 % (32-36); MEAN CORPUSCULAR VOLUME 90 fL (79.0-98.0); MONOCYTES # (AUTO) 0.4 K/uL (0.0-1.0); MONOCYTES % (AUTO) 4.4 % (1.7-9.3); NEUTROPHILS # (AUTO) 6.9 K/uL (1.8-7.7); NEUTROPHILS % (AUTO) 79.5 % (40.0-70.0); PLATELET COUNT (AUTO) 229 K/uL (130-430); RED BLOOD CELL COUNT(AUTO) 4.65 MIL/uL (4.2-6.2); RED CELL DISTRIBUTION WIDTH 11.6 % (9.0-15.0); WHITE BLOOD COUNT (AUTO) 8.7 K/uL (4.8-10.8)
[2017-07-14 00:05] LABS: CALCIUM 8.8 mg/dL (8.4-11.0); CREATININE 0.28 mg/dL (0.55-1.30); POTASSIUM 3.5 mmol/L (3.5-5.1)
[2017-07-14 00:10] LABS: ALBUMIN 3.2 g/dL (3.4-4.8); TOTAL BILIRUBIN 0.5 mg/dL (0.0-1.0)
[2017-07-14] MEDS ORDERED: MAGN30TA3 PO (00:58)
[2017-07-14] MEDS ORDERED: ERGO400C2 PO (00:58)
[2017-07-14] MEDS ORDERED: D-MA50PO PO (00:58)
[2017-07-14 01:03] LABS: BILIRUBIN,URINE NEGATIVE (NEGATIVE); BLOOD, URINE TRACE (NEGATIVE); CLARITY/URINE HAZY (CLEAR); COLOR,URINE YELLOW (YELLOW); GLUCOSE,URINE NEGATIVE (NEGATIVE); KETONES,URINE NEGATIVE (NEGATIVE); LEUKOCYTE ESTERASE ,URINE 2+ (NEGATIVE); NITRITE, URINE POSITIVE (NEGATIVE); PH,URINE 6.5 (5.0-8.0); PROTEIN URINE TRACE (NEGATIVE)
[2017-07-14 01:04] LABS: UROBILINOGEN,URINE 0.2 (0.2-1.0)
[2017-07-14 01:06] LABS: BACTERIA,URINE MANY /HPF (None Seen); WBC,URINE 20-50 /HPF (0-3)
[2017-07-14] MEDS ORDERED: fentaNYL CITRATE/PF 100 MCG/2 ML AMP IVP ONE ×2 (01:15→02:15)
[2017-07-14] MEDS ORDERED: NITROGLYCERIN 0.4 MG TAB.SUBL SL ONE (02:15)
[2017-07-14] MEDS ORDERED: ACETAMINOPHEN 325 MG TABLET PO PRN (02:15)
[2017-07-14] MEDS ORDERED: KCL 20 mEq in D5/0.45NS 1000mL 1,000 ML IV ONE (02:15)
[2017-07-14] MEDS ORDERED: MEROPENEM 500 MG VIAL IV ONE (02:44)
[2017-07-14 03:25] VITALS: BP_SYST 111
[2017-07-14] MEDS ORDERED: NITROGLYCERIN 0.4 MG TAB.SUBL SL PRN (04:15)
[2017-07-14] MEDS: MEROPENEM 1 GM IVPB PREMIX 50 ML IV SCH ×2 (05:16→21:28)
[2017-07-14] MEDS ORDERED: HYDROmorphone 2 MG TAB PO PRN (05:45)
[2017-07-14 06:40] LABS: ANION GAP 7 (5-15); CALCIUM 8.7 mg/dL (8.4-11.0); CHLORIDE 102 mmol/L (98-107); CREATININE 0.28 mg/dL (0.55-1.30); GLUCOSE 83 mg/dL (70-99); POTASSIUM 3.3 mmol/L (3.5-5.1); SODIUM SERUM 140 mmol/L (136-145); UREA NITROGEN, BLOOD 13 mg/dL (8-21)
[2017-07-14 06:48] LABS: ALANINE AMINOTRANSFERASE 33 U/L (12-78); ALBUMIN 3.1 g/dL (3.4-4.8); ASPARTATE AMINOTRANSFERASE 20 U/L (10-37); TOTAL BILIRUBIN 0.3 mg/dL (0.0-1.0)
[2017-07-14] MEDS: clonazePAM 0.5 MG TABLET PO PRN ×2 (07:01→21:28)
[2017-07-14 07:13] LABS: GFR AFRICAN AMERICAN 456 mL/min (>90)
[2017-07-14] MEDS ORDERED: KETOROLAC TROMETHAMINE 15 MG VIAL ONE (07:46)
[2017-07-14 07:56] VITALS: BP_SYST 144
[2017-07-14] MEDS: HYDROmorphone 2 MG TAB PO PRN ×4 (08:59→22:21)
[2017-07-14] MEDS ORDERED: MEROPENEM 1 GM IVPB PREMIX 50 ML IV ONE (09:00)
[2017-07-14 12:29] VITALS: BP_SYST 123
[2017-07-14] MEDS ORDERED: POTASSIUM CHLORIDE 20 MEQ/PKT PACKET PO ONE (12:45)
[2017-07-14] MEDS: KETOROLAC TROMETHAMINE 15 MG VIAL IVP PRN ×2 (14:34→20:31)
[2017-07-14 16:00] VITALS: BP_SYST 128
[2017-07-14 20:00] VITALS: BP_SYST 133
[2017-07-15] VITALS (7 sets, daily range): BP systolic 83–149
[2017-07-15] MEDS: KETOROLAC TROMETHAMINE 15 MG VIAL IVP PRN ×3 (02:07→20:35)
[2017-07-15] MEDS: clonazePAM 0.5 MG TABLET PO PRN ×2 (05:28→13:06)
[2017-07-15] MEDS: HYDROmorphone 2 MG TAB PO PRN ×4 (06:08→20:36)
[2017-07-15 07:01] LABS: BASOPHILS % (AUTO) 0.2 % (0.0-2.0); EOSINOPHILS % (AUTO) 0.4 % (0.0-4.0); HEMATOCRIT 41.9 % (36-54); LYMPHOCYTES # (AUTO) 1.2 K/uL (1.0-5.5); LYMPHOCYTES % (AUTO) 15.5 % (20.5-51.5); MEAN CORPUSCULAR HEMOGLOBIN 30 pg (27-31); MEAN CORPUSCULAR HGB CONC 33 % (32-36); MEAN CORPUSCULAR VOLUME 90 fL (79.0-98.0); MONOCYTES # (AUTO) 0.8 K/uL (0.0-1.0); MONOCYTES % (AUTO) 9.7 % (1.7-9.3); NEUTROPHILS # (AUTO) 5.8 K/uL (1.8-7.7); NEUTROPHILS % (AUTO) 74.2 % (40.0-70.0); PLATELET COUNT (AUTO) 201 K/uL (130-430); RED BLOOD CELL COUNT(AUTO) 4.64 MIL/uL (4.2-6.2); RED CELL DISTRIBUTION WIDTH 11.9 % (9.0-15.0); WHITE BLOOD COUNT (AUTO) 7.8 K/uL (4.8-10.8)
[2017-07-15 07:11] LABS: CALCIUM 9.3 mg/dL (8.4-11.0); CREATININE 0.28 mg/dL (0.55-1.30); POTASSIUM 4.2 mmol/L (3.5-5.1)
[2017-07-15] MEDS: MEROPENEM 1 GM IVPB PREMIX 50 ML IV SCH ×2 (10:07→20:34)
[2017-07-15] MEDS: POTASSIUM CHLORIDE 10 MEQ in NACL 0.9% 1,000 ML IV SCH (17:06)
[2017-07-15] MEDS: HYDROmorphone 2 MG TAB PO SCH ×2 (18:38→23:53)
[2017-07-15] MEDS: NA PHOS,M-B/NA PHOS,DI-BA 118 ML (FLEET ENEMA) RC PRN (18:47)
[2017-07-15] MEDS: ENOXAPARIN SODIUM 30 MG/0.3 ML SYRINGE SUBCUT SCH (20:34)
[2017-07-16 00:24] VITALS: BP_SYST 121
[2017-07-16] MEDS ORDERED: LACTULOSE 20 GM/30 ML UDC PO ONE (01:15)
[2017-07-16] MEDS: clonazePAM 0.5 MG TABLET PO PRN ×2 (01:50→08:09)
[2017-07-16] MEDS: KETOROLAC TROMETHAMINE 15 MG VIAL IVP PRN ×4 (02:57→22:24)
[2017-07-16] MEDS: HYDROmorphone 2 MG TAB PO PRN ×2 (02:58→20:25)
[2017-07-16] MEDS: HYDROmorphone 2 MG TAB PO SCH ×3 (06:37→17:50)
[2017-07-16 07:51] VITALS: BP_SYST 128
[2017-07-16] MEDS: MEROPENEM 1 GM IVPB PREMIX 50 ML IV SCH ×2 (08:09→20:25)
[2017-07-16] MEDS ORDERED: BISACODYL 10 MG/SUPPOSITORY RC PRN (10:45)
[2017-07-16] MEDS: NA PHOS,M-B/NA PHOS,DI-BA 118 ML (FLEET ENEMA) RC PRN (11:27)
[2017-07-16] MEDS ORDERED: MINERAL OIL 30 ML UDC PO ONE (12:00)
[2017-07-16] MEDS: clonazePAM 0.5 MG TABLET PO SCH ×2 (12:07→17:49)
[2017-07-16 12:25] VITALS: BP_SYST 126
[2017-07-16] MEDS: tiZANidine HCL 4 MG TABLET PO PRN (15:01)
[2017-07-16] MEDS: POTASSIUM CHLORIDE 10 MEQ in NACL 0.9% 1,000 ML IV SCH (15:02)
[2017-07-16 16:45] VITALS: BP_SYST 122
[2017-07-16] MEDS: ENOXAPARIN SODIUM 30 MG/0.3 ML SYRINGE SUBCUT SCH (20:25)
[2017-07-16 20:42] VITALS: BP_SYST 145
[2017-07-16] MEDS ORDERED: DOCUSATE SODIUM 100 MG CAPSULE PO SCH (21:00)
[2017-07-17] MEDS: HYDROmorphone 2 MG TAB PO SCH ×5 (00:22→23:22)
[2017-07-17] MEDS: clonazePAM 0.5 MG TABLET PO SCH ×5 (00:23→23:23)
[2017-07-17 00:48] VITALS: BP_SYST 141
[2017-07-17 06:55] LABS: BASOPHILS % (AUTO) 0.2 % (0.0-2.0); EOSINOPHILS # (AUTO) 0.1 K/uL (0.0-0.4); EOSINOPHILS % (AUTO) 0.8 % (0.0-4.0); HEMATOCRIT 43.7 % (36-54); HEMOGLOBIN 14.3 g/dL (14.0-18.0); LYMPHOCYTES # (AUTO) 1.4 K/uL (1.0-5.5); LYMPHOCYTES % (AUTO) 21.1 % (20.5-51.5); MEAN CORPUSCULAR HEMOGLOBIN 30 pg (27-31); MEAN CORPUSCULAR HGB CONC 33 % (32-36); MEAN CORPUSCULAR VOLUME 92 fL (79.0-98.0); MONOCYTES # (AUTO) 0.5 K/uL (0.0-1.0); MONOCYTES % (AUTO) 7.9 % (1.7-9.3); NEUTROPHILS # (AUTO) 4.5 K/uL (1.8-7.7); PLATELET COUNT (AUTO) 208 K/uL (130-430); RED BLOOD CELL COUNT(AUTO) 4.73 MIL/uL (4.2-6.2); RED CELL DISTRIBUTION WIDTH 12.4 % (9.0-15.0); WHITE BLOOD COUNT (AUTO) 6.5 K/uL (4.8-10.8)
[2017-07-17 06:56] LABS: CALCIUM 9.4 mg/dL (8.4-11.0); CREATININE 0.29 mg/dL (0.55-1.30); POTASSIUM 3.7 mmol/L (3.5-5.1)
[2017-07-17] MEDS: POTASSIUM CHLORIDE 10 MEQ in NACL 0.9% 1,000 ML IV SCH ×2 (07:27→14:23)
[2017-07-17 07:54] VITALS: BP_SYST 183
[2017-07-17] MEDS: KETOROLAC TROMETHAMINE 15 MG VIAL IVP PRN ×3 (07:56→20:42)
[2017-07-17] MEDS: MEROPENEM 1 GM IVPB PREMIX 50 ML IV SCH ×2 (08:54→21:39)
[2017-07-17] MEDS: MINERAL OIL 30 ML UDC PO SCH (09:00)
[2017-07-17 12:23] VITALS: BP_SYST 161
[2017-07-17 16:00] VITALS: BP_SYST 102
[2017-07-17] MEDS ORDERED: MENTHOL/ZINC OXIDE 113 GM OINT. TP PRN (19:00)
[2017-07-17] MEDS ORDERED: NA PHOS,M-B/NA PHOS,DI-BA 118 ML (FLEET ENEMA) RC ONE (19:45)
[2017-07-17 20:33] VITALS: BP_SYST 129
[2017-07-17] MEDS: ENOXAPARIN SODIUM 30 MG/0.3 ML SYRINGE SUBCUT SCH (21:39)
[2017-07-17] MEDS: MENTHOL/ZINC OXIDE 113 GM OINT. TP SCH (22:13)
[2017-07-18 00:29] VITALS: BP_SYST 147
[2017-07-18] MEDS: tiZANidine HCL 4 MG TABLET PO PRN ×2 (00:29→09:34)
[2017-07-18] MEDS: KETOROLAC TROMETHAMINE 15 MG VIAL IVP PRN ×4 (03:02→21:42)
[2017-07-18] MEDS: clonazePAM 0.5 MG TABLET PO SCH ×4 (06:26→23:56)
[2017-07-18] MEDS: HYDROmorphone 2 MG TAB PO SCH ×4 (06:26→23:56)
[2017-07-18 08:06] VITALS: BP_SYST 181
[2017-07-18] MEDS: MINERAL OIL 30 ML UDC PO SCH (09:00)
[2017-07-18] MEDS: MEROPENEM 1 GM IVPB PREMIX 50 ML IV SCH ×2 (09:00→21:41)
[2017-07-18] MEDS: MENTHOL/ZINC OXIDE 113 GM OINT. TP SCH ×5 (09:18→22:55)
[2017-07-18 12:50] VITALS: BP_SYST 152
[2017-07-18] MEDS ORDERED: cloNIDine HCL 0.1 MG TABLET PO PRN (13:45)
[2017-07-18] MEDS ORDERED: cloNIDine HCL 0.1 MG TABLET PO ONE (14:00)
[2017-07-18] MEDS: POTASSIUM CHLORIDE 10 MEQ in NACL 0.9% 1,000 ML IV SCH (15:19)
[2017-07-18 16:02] VITALS: BP_SYST 126
[2017-07-18 20:30] VITALS: BP_SYST 130
[2017-07-18] MEDS: cloNIDine HCL 0.1 MG TABLET PO SCH (21:00)
[2017-07-18] MEDS: ENOXAPARIN SODIUM 30 MG/0.3 ML SYRINGE SUBCUT SCH (21:41)
[2017-07-19 00:11] VITALS: BP_SYST 97
[2017-07-19] MEDS: HYDROmorphone 2 MG TAB PO PRN ×4 (02:44→22:39)
[2017-07-19] MEDS: clonazePAM 0.5 MG TABLET PO SCH ×3 (05:17→17:50)
[2017-07-19] MEDS: HYDROmorphone 2 MG TAB PO SCH ×3 (05:18→17:50)
[2017-07-19] MEDS ORDERED: KETOROLAC TROMETHAMINE 15 MG VIAL IVP PRN ×2 (06:15)
[2017-07-19 08:00] VITALS: BP_SYST 155
[2017-07-19] MEDS: cloNIDine HCL 0.1 MG TABLET PO SCH ×2 (09:00→22:27)
[2017-07-19] MEDS: MINERAL OIL 30 ML UDC PO SCH (09:42)
[2017-07-19] MEDS: MEROPENEM 1 GM IVPB PREMIX 50 ML IV SCH ×2 (09:42→22:23)
[2017-07-19] MEDS: MENTHOL/ZINC OXIDE 113 GM OINT. TP SCH ×4 (09:43→21:00)
[2017-07-19] MEDS: tiZANidine HCL 4 MG TABLET PO PRN (10:15)
[2017-07-19] MEDS: POTASSIUM CHLORIDE 10 MEQ in NACL 0.9% 1,000 ML IV SCH (12:30)
[2017-07-19 12:48] VITALS: BP_SYST 99
[2017-07-19 16:37] VITALS: BP_SYST 145
[2017-07-19 19:00] VITALS: BP_SYST 122
[2017-07-19 20:00] VITALS: BP_SYST 122
[2017-07-19] MEDS: ENOXAPARIN SODIUM 30 MG/0.3 ML SYRINGE SUBCUT SCH (22:28)
[2017-07-20] MEDS: clonazePAM 0.5 MG TABLET PO SCH ×3 (00:11→11:37)
[2017-07-20] MEDS: HYDROmorphone 2 MG TAB PO SCH ×2 (00:14→05:25)
[2017-07-20 00:54] VITALS: BP_SYST 98
[2017-07-20] MEDS: POTASSIUM CHLORIDE 10 MEQ in NACL 0.9% 1,000 ML IV SCH (05:28)
[2017-07-20 07:50] VITALS: BP_SYST 146
[2017-07-20] MEDS: MINERAL OIL 30 ML UDC PO SCH ×2 (09:00→09:16)
[2017-07-20] MEDS: cloNIDine HCL 0.1 MG TABLET PO SCH ×2 (09:00→09:16)
[2017-07-20] MEDS: MENTHOL/ZINC OXIDE 113 GM OINT. TP SCH ×2 (09:15→13:38)
[2017-07-20] MEDS: MEROPENEM 1 GM IVPB PREMIX 50 ML IV SCH (09:18)
[2017-07-20] MEDS: tiZANidine HCL 4 MG TABLET PO PRN (10:40)
[2017-07-20] MEDS: HYDROmorphone 2 MG TAB PO PRN (11:46)
[2017-07-20 12:00] VITALS: BP_SYST 96
[2017-07-20 12:39] VITALS: BP_SYST 104
[2017-07-20 16:45] VITALS: BP_SYST 120
== END 2017-07-20 16:55 | disposition short-term general hospital (02) | DRG 689 ==
LOC: SED 22:37 → STU 07-14 02:15 → SMU 07-18 14:47
PROVIDERS: ADMIT Family Medicine; ATTEND Family Medicine
DX: N39.0 Urinary tract infection, site not specified (principal); G93.41 Metabolic encephalopathy; R53.2 Functional quadriplegia; E44.1 Mild protein-calorie malnutrition; K59.2 Neurogenic bowel, not elsewhere classified; N31.9 Neuromuscular dysfunction of bladder, unspecified; M48.02 Spinal stenosis, cervical region; Z68.1 Body mass index [BMI] 19.9 or less, adult; M54.9 Dorsalgia, unspecified; M25.552 Pain in left hip; M25.512 Pain in left shoulder; K59.09 Other constipation; G89.29 Other chronic pain; M50.30 Other cervical disc degeneration, unspecified cervical region; I10 Essential (primary) hypertension; Z98.1 Arthrodesis status; Z79.899 Other long term (current) drug therapy; Z87.442 Personal history of urinary calculi
CPT/HCPCS: 36415; 71045; 72100-TC; 72141; 73030; 73502; 74018; 76770; 80048; 80053; 81000-TC; 83605; 84484; 85025; 87040-TC; 87086; 87186-TC; 93005; 96361; 96365; 96375; 96376; 97110-GP; 97530-GP; 99285; C1751; J0696; J1650; J1885; J2185; J3010; J3480; J7030; J7060

== ENCOUNTER 2019-12-16 17:02 | Inpatient (IN) | payer BC, SELFPAY ==
[~2019-12-16] VITALS: Ht 188 cm; Wt 52.2 kg
[~2019-12-16 17:02] MED LIST changes: +CLON1TAB12 PO; -CLON1TAB4 PO; +CYAN100010 PO; -CYAN100067 PO; +D-MA50PO PO; +ERGO400C2 PO; +HYOS-27 SL; +MAGN30TA3 PO; +NYST15CR2 TP; -NYST15CR30 TP; -TEMA30CA5 PO; -[UNRECOGNIZED DRUG - CODE] SL
[2019-12-16 17:07] VITALS: BP_SYST 90
[2019-12-16] MEDS ORDERED: cefTRIAXone 1 GM IVPB PREMIX 50 ML IV ONE (17:30)
[2019-12-16 18:20] LABS: BASOPHILS % (AUTO) 0.4 % (0.0-2.0); EOSINOPHILS % (AUTO) 0.3 % (0.0-4.0); HEMATOCRIT 36.3 % (36-54); HEMOGLOBIN 12.4 g/dL (14.0-18.0); LYMPHOCYTES # (AUTO) 1.6 K/uL (1.0-5.5); LYMPHOCYTES % (AUTO) 18.6 % (20.5-51.5); MEAN CORPUSCULAR HEMOGLOBIN 31 pg (27-31); MEAN CORPUSCULAR HGB CONC 34 % (32-36); MEAN CORPUSCULAR VOLUME 90 fL (79.0-98.0); MONOCYTES # (AUTO) 0.7 K/uL (0.0-1.0); NEUTROPHILS # (AUTO) 6.4 K/uL (1.8-7.7); NEUTROPHILS % (AUTO) 72.7 % (40.0-70.0); PLATELET COUNT (AUTO) 232 K/uL (130-430); RED BLOOD CELL COUNT(AUTO) 4.03 MIL/uL (4.2-6.2); WHITE BLOOD COUNT (AUTO) 8.7 K/uL (4.8-10.8)
[2019-12-16 18:48] LABS: BILIRUBIN,URINE NEGATIVE (NEGATIVE); BLOOD, URINE NEGATIVE (NEGATIVE); CLARITY/URINE CLEAR (CLEAR); COLOR,URINE YELLOW (YELLOW); GLUCOSE,URINE NEGATIVE (NEGATIVE); KETONES,URINE NEGATIVE (NEGATIVE); LEUKOCYTE ESTERASE ,URINE NEGATIVE (NEGATIVE); NITRITE, URINE POSITIVE (NEGATIVE); PROTEIN URINE NEGATIVE (NEGATIVE); UROBILINOGEN,URINE 0.2 (0.2-1.0)
[2019-12-16 18:48] LABS: CALCIUM 8.1 mg/dL (8.4-11.0); CREATININE 0.4 mg/dL (0.55-1.30); POTASSIUM 4.2 mmol/L (3.5-5.1)
[2019-12-16] MEDS ORDERED: MIRT15TA7 PO (18:48)
[2019-12-16 18:53] LABS: ALBUMIN 3.1 g/dL (3.4-4.8); TOTAL BILIRUBIN 0.3 mg/dL (0.0-1.0)
[2019-12-16 19:09] LABS: BACTERIA,URINE FEW /HPF (None Seen); MUCUS,URINE None Seen /LPF (None Seen); RBC,URINE 0-3 /HPF (0-3)
[2019-12-16] MEDS ORDERED: NACL 0.9% 1,000 ML IV ONE (19:15)
[2019-12-16] MEDS ORDERED: HYDROmorphone 2 MG TAB PO PRN (21:30)
[2019-12-16] MEDS ORDERED: CYANOCOBALAMIN 1000 mCg TABLET PO SCH (21:30)
[2019-12-16] MEDS ORDERED: LevALBUTEROL HCL 1.25 MG/0.5 ML *CONC.* VIAL.NEB (XOPENEX CONC.) INH PRN (21:30)
[2019-12-16] MEDS ORDERED: NALOXONE HCL 0.4 MG/ML AMP (NARCAN) IVP PRN ×2 (21:30→21:45)
[2019-12-16] MEDS ORDERED: VANCOMYCIN HCL 1 GM/NS PREMIX 250 ML IV ONE (21:45)
[2019-12-16] MEDS ORDERED: KCL 20 mEq in D5/0.45NS 1000mL 1,000 ML IV ONE (22:21)
[2019-12-16] MEDS: KCL 20 mEq in D5/0.45NS 1000mL 1,000 ML IV SCH (22:21)
[2019-12-16 22:49] VITALS: BP_SYST 148
[2019-12-16] MEDS: HYDROmorphone 2 MG TAB PO PRN (23:07)
[2019-12-16] MEDS ORDERED: VANCOMYCIN HCL 1000 MG/VIAL IV ONE (23:52)
[2019-12-16] MEDS ORDERED: MEROPENEM 500 MG VIAL IV ONE (23:52)
[2019-12-16] MEDS: MEROPENEM 500 MG in NS 50 ML IV SCH (23:56)
[2019-12-17] VITALS: BP_SYST 148
[2019-12-17] MEDS: LevALBUTEROL HCL 1.25 MG/0.5 ML *CONC.* VIAL.NEB (XOPENEX CONC.) INH SCH ×5 (00:18→19:44)
[2019-12-17 00:33] VITALS: BP_SYST 111
[2019-12-17] MEDS: HYDROmorphone 2 MG TAB PO PRN ×4 (03:18→18:29)
[2019-12-17] MEDS ORDERED: MEROPENEM 500 MG VIAL IV ONE (05:32)
[2019-12-17] MEDS: MEROPENEM 500 MG in NS 50 ML IV SCH ×3 (06:30→21:15)
[2019-12-17 07:03] LABS: BASOPHILS # (AUTO) 0.1 K/uL (0.0-0.2); BASOPHILS % (AUTO) 0.7 % (0.0-2.0); EOSINOPHILS % (AUTO) 0.6 % (0.0-4.0); HEMATOCRIT 36.4 % (36-54); HEMOGLOBIN 12.2 g/dL (14.0-18.0); LYMPHOCYTES # (AUTO) 1.4 K/uL (1.0-5.5); LYMPHOCYTES % (AUTO) 18.7 % (20.5-51.5); MEAN CORPUSCULAR HEMOGLOBIN 30 pg (27-31); MEAN CORPUSCULAR HGB CONC 34 % (32-36); MEAN CORPUSCULAR VOLUME 90 fL (79.0-98.0); MONOCYTES # (AUTO) 0.6 K/uL (0.0-1.0); MONOCYTES % (AUTO) 8.5 % (1.7-9.3); NEUTROPHILS # (AUTO) 5.4 K/uL (1.8-7.7); NEUTROPHILS % (AUTO) 71.5 % (40.0-70.0); PLATELET COUNT (AUTO) 209 K/uL (130-430); RED BLOOD CELL COUNT(AUTO) 4.03 MIL/uL (4.2-6.2); RED CELL DISTRIBUTION WIDTH 13.3 % (9.0-15.0); WHITE BLOOD COUNT (AUTO) 7.6 K/uL (4.8-10.8)
[2019-12-17 07:33] LABS: ALANINE AMINOTRANSFERASE 12 U/L (12-78); ALBUMIN 3.1 g/dL (3.4-4.8); ANION GAP 10 (5-15); ASPARTATE AMINOTRANSFERASE 10 U/L (10-37); CALCIUM 8.4 mg/dL (8.4-11.0); CHLORIDE 105 mmol/L (98-107); GLUCOSE 91 mg/dL (70-99); PHOSPHORUS 3.2 mg/dL (2.7-4.5); POTASSIUM 3.9 mmol/L (3.5-5.1); SODIUM SERUM 139 mmol/L (136-145); TOTAL BILIRUBIN 0.4 mg/dL (0.0-1.0); UREA NITROGEN, BLOOD 5 mg/dL (8-21)
[2019-12-17 07:46] LABS: CREATININE < 0.20 mg/dL (0.55-1.30); GFR AFRICAN AMERICAN 666 mL/min (>90)
[2019-12-17 08:00] VITALS: BP_SYST 102
[2019-12-17] MEDS: clonazePAM 0.5 MG TABLET PO SCH ×3 (09:26→21:10)
[2019-12-17] MEDS: CHOLECALCIFEROL (VITAMIN D-3) 400 UNIT TABLET PO SCH ×2 (09:26→21:10)
[2019-12-17] MEDS: tiZANidine HCL 4 MG TABLET PO SCH ×2 (09:26→21:09)
[2019-12-17] MEDS: FLUDROCORTISONE ACETATE 0.1 MG TABLET( FLORINEF) PO SCH ×2 (09:26→21:35)
[2019-12-17] MEDS: METOPROLOL SUCCINATE 25 MG TAB.SR.24H (TOPROL XL) PO SCH (09:26)
[2019-12-17] MEDS: NYSTATIN/TRIAMCIN 15 GM TOPICAL CREAM TP SCH ×2 (10:36→21:16)
[2019-12-17] MEDS: KCL 20 mEq in D5/0.45NS 1000mL 1,000 ML IV SCH (10:36)
[2019-12-17] MEDS: HYOSCYAMINE SULFATE 0.125 MG TABLET SL SCH ×2 (10:36→21:11)
[2019-12-17 11:30] VITALS: BP_SYST 114
[2019-12-17] MEDS: VANCOMYCIN HCL 750 MG in NS 250 ML IV SCH ×2 (11:30→23:15)
[2019-12-17 15:33] VITALS: BP_SYST 105
[2019-12-17] MEDS: ENOXAPARIN SODIUM 30 MG/0.3 ML SYRINGE SUBCUT SCH (16:27)
[2019-12-17 20:00] VITALS: BP_SYST 125
[2019-12-17] MEDS: MIRTAZAPINE 15 MG TABLET PO SCH (21:00)
[2019-12-17] MEDS: TEMAZEPAM 15 MG CAPSULE PO SCH (21:10)
[2019-12-17] MEDS: ACETAMINOPHEN 325 MG TABLET PO PRN (21:11)
[2019-12-18] VITALS: BP_SYST 106
[2019-12-18] MEDS ORDERED: KCL 20 mEq in D5/0.45NS 1000mL 1,000 ML IV ONE (00:07)
[2019-12-18] MEDS: LevALBUTEROL HCL 1.25 MG/0.5 ML *CONC.* VIAL.NEB (XOPENEX CONC.) INH SCH ×4 (00:11→19:47)
[2019-12-18] MEDS: KCL 20 mEq in D5/0.45NS 1000mL 1,000 ML IV SCH ×2 (02:49→15:00)
[2019-12-18] MEDS: HYDROmorphone 2 MG TAB PO PRN ×4 (03:24→20:29)
[2019-12-18] MEDS: ACETAMINOPHEN 325 MG TABLET PO PRN (05:49)
[2019-12-18] MEDS: MEROPENEM 500 MG in NS 50 ML IV SCH ×2 (05:50→14:51)
[2019-12-18] MEDS: clonazePAM 0.5 MG TABLET PO SCH ×3 (08:59→21:27)
[2019-12-18] MEDS: FLUDROCORTISONE ACETATE 0.1 MG TABLET( FLORINEF) PO SCH ×2 (09:00→21:31)
[2019-12-18] MEDS: METOPROLOL SUCCINATE 25 MG TAB.SR.24H (TOPROL XL) PO SCH (09:00)
[2019-12-18] MEDS: CHOLECALCIFEROL (VITAMIN D-3) 400 UNIT TABLET PO SCH ×2 (09:00→21:30)
[2019-12-18] MEDS: tiZANidine HCL 4 MG TABLET PO SCH ×2 (09:00→23:04)
[2019-12-18] MEDS: ENOXAPARIN SODIUM 30 MG/0.3 ML SYRINGE SUBCUT SCH (09:01)
[2019-12-18] MEDS: HYOSCYAMINE SULFATE 0.125 MG TABLET SL SCH ×2 (09:01→23:05)
[2019-12-18] MEDS: NYSTATIN/TRIAMCIN 15 GM TOPICAL CREAM TP SCH ×2 (09:08→23:04)
[2019-12-18] MEDS: VANCOMYCIN HCL 750 MG in NS 250 ML IV SCH (12:37)
[2019-12-18 12:51] VITALS: BP_SYST 127
[2019-12-18 16:00] VITALS: BP_SYST 130
[2019-12-18 19:30] VITALS: BP_SYST 135
[2019-12-18] MEDS: MIRTAZAPINE 15 MG TABLET PO SCH (21:00)
[2019-12-18] MEDS: TEMAZEPAM 15 MG CAPSULE PO SCH (21:30)
[2019-12-19] VITALS: BP_SYST 152
[2019-12-19] MEDS: MEROPENEM 500 MG in NS 50 ML IV SCH ×3 (00:13→14:43)
[2019-12-19] MEDS: LevALBUTEROL HCL 1.25 MG/0.5 ML *CONC.* VIAL.NEB (XOPENEX CONC.) INH SCH ×4 (01:00→19:00)
[2019-12-19] MEDS: VANCOMYCIN HCL 750 MG in NS 250 ML IV SCH (01:54)
[2019-12-19] MEDS: HYDROmorphone 2 MG TAB PO PRN ×4 (02:53→21:57)
[2019-12-19] MEDS: ACETAMINOPHEN 325 MG TABLET PO PRN (04:43)
[2019-12-19] MEDS: KCL 20 mEq in D5/0.45NS 1000mL 1,000 ML IV SCH ×2 (05:48→19:40)
[2019-12-19 08:00] VITALS: BP_SYST 130
[2019-12-19] MEDS: clonazePAM 0.5 MG TABLET PO SCH ×3 (09:05→21:56)
[2019-12-19] MEDS: CHOLECALCIFEROL (VITAMIN D-3) 400 UNIT TABLET PO SCH ×2 (09:05→21:57)
[2019-12-19] MEDS: FLUDROCORTISONE ACETATE 0.1 MG TABLET( FLORINEF) PO SCH ×2 (09:05→21:57)
[2019-12-19] MEDS: HYOSCYAMINE SULFATE 0.125 MG TABLET SL SCH ×2 (09:06→22:08)
[2019-12-19] MEDS: tiZANidine HCL 4 MG TABLET PO SCH ×2 (09:06→22:10)
[2019-12-19] MEDS: METOPROLOL SUCCINATE 25 MG TAB.SR.24H (TOPROL XL) PO SCH (09:06)
[2019-12-19] MEDS: ENOXAPARIN SODIUM 30 MG/0.3 ML SYRINGE SUBCUT SCH (09:07)
[2019-12-19] MEDS: NYSTATIN/TRIAMCIN 15 GM TOPICAL CREAM TP SCH ×2 (09:08→22:00)
[2019-12-19] MEDS ORDERED: SODIUM PHOSPHATE,MONO-DIBASIC 133 ML ENEMA RC ONE (10:00)
[2019-12-19] MEDS: VANCOMYCIN HCL 1,000 MG in NS 250 ML IV SCH (12:08)
[2019-12-19 12:10] VITALS: BP_SYST 100; BP_SYST 91
[2019-12-19 16:56] VITALS: BP_SYST 112
[2019-12-19 20:00] VITALS: BP_SYST 160
[2019-12-19] MEDS: MIRTAZAPINE 15 MG TABLET PO SCH (21:00)
[2019-12-19] MEDS: TEMAZEPAM 15 MG CAPSULE PO SCH (22:10)
[2019-12-20] VITALS: BP_SYST 125
[2019-12-20] MEDS: MEROPENEM 500 MG in NS 50 ML IV SCH ×3 (00:03→14:47)
[2019-12-20] MEDS: LevALBUTEROL HCL 1.25 MG/0.5 ML *CONC.* VIAL.NEB (XOPENEX CONC.) INH SCH ×3 (01:00→13:00)
[2019-12-20] MEDS: VANCOMYCIN HCL 1,000 MG in NS 250 ML IV SCH ×2 (01:05→12:03)
[2019-12-20] MEDS: KCL 20 mEq in D5/0.45NS 1000mL 1,000 ML IV SCH (04:09)
[2019-12-20] MEDS: HYDROmorphone 2 MG TAB PO PRN ×2 (08:02→14:47)
[2019-12-20 08:10] VITALS: BP_SYST 128
[2019-12-20] MEDS: CHOLECALCIFEROL (VITAMIN D-3) 400 UNIT TABLET PO SCH (08:59)
[2019-12-20] MEDS: tiZANidine HCL 4 MG TABLET PO SCH (08:59)
[2019-12-20] MEDS: clonazePAM 0.5 MG TABLET PO SCH ×2 (08:59→15:56)
[2019-12-20] MEDS: FLUDROCORTISONE ACETATE 0.1 MG TABLET( FLORINEF) PO SCH (08:59)
[2019-12-20] MEDS: HYOSCYAMINE SULFATE 0.125 MG TABLET SL SCH (09:00)
[2019-12-20] MEDS: METOPROLOL SUCCINATE 25 MG TAB.SR.24H (TOPROL XL) PO SCH (09:00)
[2019-12-20] MEDS: ENOXAPARIN SODIUM 30 MG/0.3 ML SYRINGE SUBCUT SCH (09:06)
[2019-12-20] MEDS: NYSTATIN/TRIAMCIN 15 GM TOPICAL CREAM TP SCH (09:06)
[2019-12-20 12:30] VITALS: BP_SYST 123
[2019-12-20 16:26] VITALS: BP_SYST 114
[2019-12-21] MEDS ORDERED: POLYETHYLENE GLYCOL 3350, 17 GM/ POWD.PACK PO SCH (09:00)
== END 2019-12-20 18:00 | disposition home or self-care (01) | DRG 205 ==
LOC: SED 17:02 → STU 18:51
PROVIDERS: ADMIT Family Medicine; ATTEND Family Medicine
PROC: 0B21XFZ Change Tracheostomy Device in Trachea, External Approach (ICD-10-PCS; principal; 2019-12-16)
DX: J95.02 Infection of tracheostomy stoma (principal); R53.2 Functional quadriplegia; J96.10 Chronic respiratory failure, unspecified whether with hypoxia or hypercapnia; L03.221 Cellulitis of neck; N39.0 Urinary tract infection, site not specified; D64.9 Anemia, unspecified; Y83.8 Other surgical procedures as the cause of abnormal reaction of the patient, or of later complication, without mention of misadventure at the time of the procedure; Y82.9 Unspecified medical devices associated with adverse incidents; I10 Essential (primary) hypertension; G89.29 Other chronic pain; R13.10 Dysphagia, unspecified; Z74.01 Bed confinement status; Z88.5 Allergy status to narcotic agent; Z88.6 Allergy status to analgesic agent
CPT/HCPCS: 36415; 71045; 80053; 80202-TC; 81000-TC; 83605; 83735-TC; 84100-TC; 84484; 85025; 87040-TC; 87086; 93005; 94640; 94760; 96361; 96365; 99285; G0378; J0696; J1650; J2185; J3370; J7050; J7612

== ENCOUNTER 2020-01-03 11:31 | Emergency (ER) | payer BC, SELFPAY ==
[~2020-01-03] VITALS: Ht 157.5 cm; Wt 58.1 kg
[~2020-01-03 11:31] MED LIST changes: -CLON0.5T4 PO; +MIRT15TA7 PO
[2020-01-03 11:39] VITALS: BP_SYST 147
[2020-01-03 12:00] LABS: BASOPHILS # (AUTO) 0.1 K/uL (0.0-0.2); BASOPHILS % (AUTO) 0.9 % (0.0-2.0); EOSINOPHILS % (AUTO) 0.4 % (0.0-4.0); HEMATOCRIT 41.9 % (36-54); HEMOGLOBIN 14.2 g/dL (14.0-18.0); LYMPHOCYTES # (AUTO) 1.8 K/uL (1.0-5.5); LYMPHOCYTES % (AUTO) 25.4 % (20.5-51.5); MEAN CORPUSCULAR HEMOGLOBIN 30 pg (27-31); MEAN CORPUSCULAR HGB CONC 34 % (32-36); MEAN CORPUSCULAR VOLUME 90 fL (79.0-98.0); MONOCYTES # (AUTO) 0.6 K/uL (0.0-1.0); MONOCYTES % (AUTO) 8.9 % (1.7-9.3); NEUTROPHILS # (AUTO) 4.6 K/uL (1.8-7.7); NEUTROPHILS % (AUTO) 64.4 % (40.0-70.0); PLATELET COUNT (AUTO) 243 K/uL (130-430); RED BLOOD CELL COUNT(AUTO) 4.68 MIL/uL (4.2-6.2); RED CELL DISTRIBUTION WIDTH 13.6 % (9.0-15.0); WHITE BLOOD COUNT (AUTO) 7.1 K/uL (4.8-10.8)
[2020-01-03] MEDS: NACL 0.9% 2,000 ML IV ONE (12:05)
[2020-01-03 12:26] LABS: CALCIUM 8.9 mg/dL (8.4-11.0); CREATININE 0.22 mg/dL (0.55-1.30); POTASSIUM 3.2 mmol/L (3.5-5.1)
[2020-01-03 12:31] LABS: ALBUMIN 3.7 g/dL (3.4-4.8); TOTAL BILIRUBIN 0.5 mg/dL (0.0-1.0)
[2020-01-03 13:12] LABS: BILIRUBIN,URINE NEGATIVE (NEGATIVE); BLOOD, URINE NEGATIVE (NEGATIVE); CLARITY/URINE CLEAR (CLEAR); COLOR,URINE ORANGE (YELLOW); GLUCOSE,URINE NEGATIVE (NEGATIVE); KETONES,URINE 2+ (NEGATIVE); LEUKOCYTE ESTERASE ,URINE NEGATIVE (NEGATIVE); NITRITE, URINE NEGATIVE (NEGATIVE); PROTEIN URINE NEGATIVE (NEGATIVE); UROBILINOGEN,URINE 0.2 (0.2-1.0)
[2020-01-03] MEDS ORDERED: IOHEXOL 350 mgI/mL, 150 ML INFUS..BTL IV ONE (14:17)
[2020-01-03 19:47] VITALS: BP_SYST 150
== END 2020-01-03 19:46 | disposition home or self-care (01) ==
LOC: SED 11:31
DX: R41.82 Altered mental status, unspecified (principal); F11.90 Opioid use, unspecified, uncomplicated; Z87.442 Personal history of urinary calculi; Z79.899 Other long term (current) drug therapy; Z88.5 Allergy status to narcotic agent; Z20.828 Contact with and (suspected) exposure to other viral communicable diseases
CPT/HCPCS: 36415; 36600; 70450; 71045; 71275; 80053; 81003; 82803; 83605; 85025; 87040; 87426; 93005; 96360; 96361; 99285; J7030; Q9967